=== PATIENT | male | born 1995 | race Caucasian/White ===

== ENCOUNTER 2019-08-04 17:15 | Emergency (ER) | payer OTHER, BC ==
[~2019-08-04] VITALS: Ht 175 cm; Wt 59.0 kg
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
[2019-08-04 19:48] VITALS: BP 124/76
== END 2019-08-04 19:48 | disposition home or self-care (01) ==
LOC: ER 17:18
DX: S20.219A Contusion of unspecified front wall of thorax, initial encounter (principal); V89.2XXA Person injured in unspecified motor-vehicle accident, traffic, initial encounter
CPT/HCPCS: 71046; 93005

== ENCOUNTER → 2020-02-02 | Outpatient (CLI) | payer BC, OTHER | LOC: LABNPT 05:52 | PROVIDERS: ATTEND Nurse Practitioner Family | DX: U07.1 COVID-19 (principal); J02.9 Acute pharyngitis, unspecified | CPT/HCPCS: 87635 ==

== ENCOUNTER → 2020-02-09 | Outpatient (CLI) | payer BC ==
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
== END ==
LOC: RAD 16:09
PROVIDERS: ATTEND Nurse Practitioner Family
DX: R05 Cough (principal); R06.02 Shortness of breath; Z20.828 Contact with and (suspected) exposure to other viral communicable diseases
CPT/HCPCS: 71046

== ENCOUNTER → 2022-01-12 | Outpatient (CLI) | payer BC, OTHER ==
--- NOTE | 2022-01-12 09:09 | Diagnostic Imaging Report ---
PROCEDURE: US Gallbladder. TECHNIQUE: Multiple real-time grayscale images were obtained over the right upper quadrant in various projections. INDICATION: Right upper quadrant abdominal pain. COMPARISON: None available. FINDINGS: Liver: Normal in size and echotexture. No focal lesion is seen. There is appropriate hepatopetal flow in the main portal vein. Gallbladder: Normal. No stones or gallbladder wall thickening. No pericholecystic fluid. Negative sonographic Krause's sign. Biliary Tree: No intrahepatic or extrahepatic bile duct dilation is identified. The proximal common duct measures 0.4 cm in diameter. Pancreas: Obscured by overlying bowel gas. Right kidney: Normal parenchymal echotexture and thickness. No hydronephrosis, stone or mass. Right renal length is 10.4 cm. Other: The visualized aorta and IVC are normal in caliber and contour. No abdominal free fluid is identified. IMPRESSION: Normal exam. No findings to account for the patient's right upper quadrant abdominal pain. Dictated by: Dictated on workstation # [id number]
== END ==
LOC: RAD 07:37
PROVIDERS: ATTEND Nurse Practitioner Family
DX: R10.11 Right upper quadrant pain (principal)
CPT/HCPCS: 76705